=== PATIENT | female | born 1990 | race Hispanic/Latino ===

== ENCOUNTER 2019-02-14 05:50 | Emergency (ER) | payer SELFPAY ==
[2019-02-14] MEDS ORDERED: Ondansetron PF 4 MG/2 ML Vial ONE (06:33)
[2019-02-14] MEDS ORDERED: Morphine 4 MG/ML VIAL ONE (06:33)
[2019-02-14 06:46] LABS: BHCG - Serum Negative (NEGATIVE); Pregs Control Background? CLEAR/WHITE (CLR/WHITE); Pregs Control Bar Appear? YES (CONTROL BAR)
[2019-02-14 06:49] LABS: #Basophils 0.1 thou/uL (0.0-0.2); #Lymphocytes 1.6 thou/uL (1.20-3.40); #Monocytes 0.9 thou/uL (0.11-0.59); #Neutrophils 9.9 thou/uL (1.40-6.50); %Basophils 0.7 % (0.0-1.0); %Eosinophils 0.3 % (0.0-10.0); %Lymphocytes 12.9 % (21.0-51.0); %Monocytes 7.3 % (0.0-10.0); %Neutrophils 78.8 % (42.0-75.0); Hemoglobin 12.4 g/dL (12.0-16.0); Mean Corpuscular HGB CONC 36.4 g/dL (32.0-36.0); Mean Corpuscular Hemoglobin 31.1 pg (27.0-31.0); Mean Corpuscular Volume 85.4 fL (78.0-98.0); Mean Platelet Volume 7.2 fL (7.4-10.4); Platelet Count 302 thou/uL (130-400); RBC Distribution Width 11.4 % (11.5-14.5); Red Blood Cell (RBC) Count 3.99 mill/uL (4.20-5.40); White Blood Cell (WBC) Count 12.5 thou/uL (4.8-10.8)
[2019-02-14 06:50] LABS: ALT (SGPT) 77 U/L (8-55); AST (SGOT) 60 U/L (5-34); Alkaline Phosphatase 85 U/L (40-150); Anion Gap 19 mmol/L (10-20); BUN (Urea Nitrogen) 11 mg/dL (7.0-18.7); Bilirubin, Total 0.8 mg/dL (0.2-1.2); Calc. Creatinine Clearance 0 mL/min (70-130); Calcium 9.3 mg/dL (7.8-10.44); Carbon Dioxide 16 mmol/L (22-29); Chloride 103 mmol/L (98-107); Estimated GFR-MDRD 80; Globulin 3.6 g/dL (2.4-3.5); Glucose 141 mg/dL (70-105); Lipase 23 U/L (8-78); Protein, Total 7.6 g/dL (6.0-8.3); Sodium 135 mmol/L (136-145)
[2019-02-14 07:03] LABS: Potassium 2.7 mmol/L (3.5-5.1)
[2019-02-14] MEDS ORDERED: Potassium Chloride 20 MEQ TAB ONE (07:19)
--- NOTE | 2019-02-14 07:30 | RAD ---
EXAM: Chest Two Views 02/14/2019 7:28 AM HISTORY: Pleuritic right-sided chest pain and right-sided flank pain COMPARISON: None. FINDINGS: Heart: Normal in size and contour. Pulmonary vessels: Normal. Costophrenic angles: Clear. Lungs: No confluent pneumonia, overt edema, pleural effusion, or other acute process. Pneumothorax: None. Osseous structures:Intact. Additional findings: None. IMPRESSION: No significant acute intrathoracic disease.
--- NOTE | 2019-02-14 08:03 | CT ---
CTA Angio Chest W WO Con 02/14/2019 7:04 AM Indication: History of right-sided chest pain and right-sided flank pain Technique: Multiple CTA images were obtained of the thorax with IV contrast. 3D reformatted images were constructed from the raw data. Comparison: None Findings: Pulmonary arteries: No central or segmental pulmonary embolus is evident. Heart and Great Vessels: Normal appearing. Lungs:The lungs are clear. There is a sub-4 mm, subpleural pulmonary nodule within the lower right up per lobe suspicious for small intrapulmonary lymph node. Pleural space: Clear. Upper Abdomen: There is fatty infiltration of the liver. Osseous Structures: No acute osseous abnormality. Impression: No central or segmental pulmonary embolus demonstrated.
--- NOTE | 2019-02-14 08:12 | CT ---
CT OF THE ABDOMEN AND PELVIS WITH IV CONTRAST INDICATION: Right-sided flank pain COMPARISON: None FINDINGS: ABDOMEN: Lung bases: Clear Liver: No focal lesion. Gallbladder: The gallbladder is not visualized and may be surgically absent or heavily contracted. Pancreas: Normal. Adrenal glands: Normal. Spleen: Normal. Kidneys: There is heterogeneous enhancement of the right kidney suspicious for pyelonephritis. The le ft kidney is normal-appearing. Retroperitoneum of the upper abdomen: No lymphadenopathy or free fluid is identified. Pelvis: Small and large bowel: The small and large bowel appear within normal limits. . The appendix is not definitely visualized. Rectal and perirectal soft tissues:Normal. Reproductive structures: Normal. Free fluid in pelvis: No free fluid is evident. Lymphadenopathy pelvis: No lymphadenopathy is evident. Vascular structures: Normal. Osseous structures: No acute osseous abnormality. No destructive osteolytic or osteoblastic lesion i s identified. IMPRESSION: 1. Heterogeneous enhancement of the right kidney is suspicious for pyelonephritis. Recommend correlat ion with the clinical examination and urinary laboratories. 2. Nonvisualization of the appendix; however, there are no secondary signs for appendicitis.
[2019-02-14] MEDS ORDERED: Sodium Chloride 0.9% 100 ML ONE (08:18)
[2019-02-14] MEDS ORDERED: Ketorolac Tromethamine 30 MG/ML VIAL ONE (08:18)
[2019-02-14] MEDS ORDERED: cefTRIAXone\\ROCEPHIN 2 GM VIAL ONE (08:18)
[2019-02-14 08:33] LABS: Bilirubin Negative (Negative); Blood, Urine Large (Negative); Clarity Slightly Cloudy (Clear); Glucose, Urine (Dipstick) Negative (Negative); Leukocyte Small (Negative); Nitrite Positive (Negative); Protein, Urine (Dipstick) 30 mg/dL (Neg-Trace); pH, Urine 5.5 (5.0-9.0)
[2019-02-14 08:37] LABS: Specific Gravity, Urine Greater than 1.035 (1.002-1.036)
[2019-02-14 08:40] LABS: Bacteria/HPF Rare-Few HPF (None Seen); Crystals/HPF RARE AMORPH URATES HPF (Negative); Squamous Epithelial 0-3 HPF (0-3)
[2019-02-14] MEDS ORDERED: Iopamidol 370 76% 100 ML VIAL ONE (09:00)
== END 2019-02-14 09:40 | disposition home or self-care (01) ==
LOC: SCSER 05:50
DX: N12 Tubulo-interstitial nephritis, not specified as acute or chronic (principal); F17.210 Nicotine dependence, cigarettes, uncomplicated; E11.9 Type 2 diabetes mellitus without complications; Z79.84 Long term (current) use of oral hypoglycemic drugs
CPT/HCPCS: 71046; 71275; 74177; 80053; 81003; 81015; 83605; 83690; 84703; 85025; 85379; 87077; 87086; 87186; 96361; 96365; 96375; J0696; J1885; J2270; J2405; J3490; Q9967

== ENCOUNTER 2020-12-13 06:28 | Emergency (ER) | payer SELFPAY ==
[2020-12-13] MEDS ORDERED: Ketorolac Tromethamine 30 MG/ML VIAL ONE (07:27)
--- NOTE | 2020-12-13 07:56 | RAD ---
EXAM: 4 views of the right knee HISTORY: Knee pain COMPARISON: None FINDINGS: No knee effusion is seen. There is no evidence of acute fracture or dislocation. No signifi cant degenerative changes are seen. No soft tissue swelling is present. IMPRESSION: No evidence of acute osseous abnormality.
== END 2020-12-13 08:00 | disposition home or self-care (01) ==
LOC: ERS 06:28
DX: S86.811A Strain of other muscle(s) and tendon(s) at lower leg level, right leg, initial encounter (principal); E11.9 Type 2 diabetes mellitus without complications; F17.210 Nicotine dependence, cigarettes, uncomplicated
CPT/HCPCS: 96372; J1885